=== PATIENT | male | born 1965 | race Caucasian/White ===

== ENCOUNTER 2018-10-11 00:39 | Emergency (ER) | payer BC ==
--- NOTE | 2018-10-11 01:01 | ED ---
Syncope/Near Syncope - HPI Summary HPI Summary: The patient is a 52 year old male presenting to [facility] with a chief complaint of syncope. The patient lost consciousness for approximately one minute. The patient's heard him fall and found him on the floor unconscious after urinating. He took 100mg of Benadryl within 2 hours and took NyQuil as well. The patient states he had difficulty urinating prior to his syncope. The patient does not remember if he hit his head and he denies any headache. - History Of Current Complaint Chief Complaint: EDSyncope Time Seen by Provider: 10/11/18 00:51 Hx Obtained From: Patient Onset/Duration: Sudden Onset Timing: Constant Context: Witnessed, Loss Of Consciousness Activity At Onset: Other - Urinating Alleviating Factor(s): Spontaneous Resolution Associated Signs And Symptoms: Other - Dysuria - Risk Factors Cardiac Risk Factors: Negative Dysrhythmia Risk Factors: Negative Risk Factor(s): Negative - Allergies/Home Medications Allergies/Adverse Reactions: Allergies Allergy/AdvReac Type Severity Reaction Status Date / Time BARLEY Allergy NASAL Uncoded 01/05/18 15:27 CONGESTION Dust Mites Allergy Congestion Uncoded 01/05/18 15:27 Seasonal Allergies Allergy Congestion Uncoded 01/05/18 15:27 PMH/Surg Hx/FS Hx/Imm Hx Endocrine/Hematology History: Denies: Hx Diabetes, Hx Sickle Cell Disease, Hx Thyroid Disease Cardiovascular History: Denies: Hx Hypertension, Other Cardiovascular Problems/Disorders Respiratory History: Reports: Hx Asthma - ROUTINE AND PRN MEDICATION FOR Denies: Hx Chronic Obstructive Pulmonary Disease (COPD) GI History: Denies: Hx Ulcer, Other GI Disorders History: Denies: Other Problems/Disorders Musculoskeletal History: Reports: Hx Tendonitis - RIGHT ROTATOR CUFF- CURRENTLY DOING PHYSICAL THERAPY Denies: Other Musculoskeletal History Sensory History: Reports: Hx Cataracts, Hx Contacts or Glasses - READING GLASSES Denies: Hx Hearing Aid Opthamlomology History: Reports: Hx Cataracts, Hx Contacts or Glasses - READING GLASSES Neurological History: Reports: Other Neuro Impairments/Disorders - ADD- ON MEDICATION FOR Psychiatric History: Reports: Hx Anxiety - PRN BUSPAR, Hx Depression - MILD DYSTHYMIA - Surgical History Surgery Procedure, Year, and Place: Cataract surgery(bilateral). TONSILLECTOMY - [facility] Hx Anesthesia Reactions: No Infectious Disease History: No Infectious Disease History: Denies: Hx Hepatitis, Hx Human Immunodeficiency Virus (HIV), History Other Infectious Disease, Traveled Outside the [place] in Last 30 Days - Family History Known Family History: Negative: Cardiac Disease, Hypertension - Social History Alcohol Use: Weekly Alcohol Amount: 3-4 PER WEEK Substance Use Type: Reports: None Smoking Status (MU): Never Smoked Tobacco Review of Systems Negative: Fever Positive: dysuria Positive: Syncope All Other Systems Reviewed And Are Negative: Yes Physical Exam - Summary Physical Exam Summary: VITAL SIGNS: Reviewed. GENERAL: Patient is a well-developed and nourished MALE who is lying comfortable in the stretcher. Patient is not in any acute respiratory distress. HEAD AND FACE: No signs of trauma. No ecchymosis, hematomas or skull depressions. No sinus tenderness. EYES: PERRLA, EOMI x 2, No injected conjunctiva, no nystagmus. EARS: Hearing grossly intact. Ear canals and tympanic membranes are within normal limits. MOUTH: Oropharynx within normal limits. NECK: Supple, trachea is midline, no adenopathy, no JVD, no carotid bruit, no c- spine tenderness, neck with full ROM. CHEST: Symmetric, no tenderness at palpation LUNGS: Clear to auscultation bilaterally. No wheezing or crackles. CVS: Regular rate and rhythm, S1 and S2 present, no murmurs or gallops appreciated. ABDOMEN: Soft, non-tender. No signs of distention. No rebound no guarding, and no masses palpated. Bowel sounds are normal. EXTREMITIES: FROM in all major joints, no edema, no cyanosis or clubbing. NEURO: Alert and oriented x 3. No acute neurological deficits. Speech is normal and follows commands. SKIN: Dry and warm Triage Information Reviewed: Yes Vital Signs On Initial Exam: Initial Vitals Temp Pulse Resp BP Pulse Ox 98.8 F 98 16 127/82 97 10/11/18 00:42 10/11/18 00:42 10/11/18 00:42 10/11/18 00:42 10/11/18 00:42 Vital Signs Reviewed: Yes Diagnostics - Vital Signs Vital Signs Temp Pulse Resp BP Pulse Ox 10/11/18 00:42 98.8 F 98 16 127/82 97 - Laboratory Result Diagrams: 10/11/18 01:13 10/11/18 01:13 Lab Statement: Any lab studies that have been ordered have been reviewed, and results considered in the medical decision making process. - EKG 0105 EKG Rhythm: Sinus Rhythm - [address] Segment: Normal Summary of EKG Findings: Normal axis. Normal interval. No ischemic changes. Re-Evaluation - Re-Evaluation First Eval Re-Evaluation Time: 01:45 Comment: Discussing lab results and plan for treatment and discharge with patient. Course/Dx Course Of Treatment: The patient is a 52 year old male presenting to [facility] with a chief complaint of syncope. Labs were unremarkable. Patient likely had vasovagal syncope after trying to urinate after taking 100 mg of benadryl. He will be instructed to follow up with his PCP in 1-2 days. The patient is agreeable with this plan. - Diagnoses Provider Diagnoses: Vasovagal syncope Discharge - Sign-Out/Discharge Documenting (check all that apply): Patient Departure - Discharge - Discharge Plan Condition: Stable Disposition: HOME Patient Education Materials: Syncope (ED) Referrals: Be Owen MD [Primary Care Provider] - Additional Instructions: Return to ED with any new or worsening symptoms. Follow up with primary care provider in 1-2 days. - Attestation Statements Document Initiated by Scribe: Yes Documenting Scribe: Jc Morris Provider For Whom Falguniibe is Documenting (Include Credential): Danita Schroeder MD Scribe Attestation: Jc Rosario scribed for Danita Schroeder MD on 10/11/18 at 0152. Status of Scribe Document: Ready
[2018-10-11 01:22] LABS: ABS Basophils 0 10^3/ul (0-0.2); ABS Eosinophils 0.2 10^3/ul (0-0.6); ABS Lymphocytes 0.5 10^3/ul (1.0-4.8); ABS Neutrophils 6.6 10^3/ul (1.5-7.7); ABS Nucleated RBC 0 10^3/ul; Eosinophil % 2.1 %; Hematocrit 45 % (42-52); Hemoglobin 15.5 g/dl (14.0-18.0); Lymphocyte % 5.7 %; Mean Corpuscular HGB Conc 35 g/dl (31-36); Mean Corpuscular Hemoglobin 32 pg (27-31); Mean Corpuscular Volume 93 fL (80-94); Mean Platelet Volume 7.5 fL (7.4-10.4); Nucleated Red Blood Cells % 0; Platelet Count 191 10^3/ul (150-450); Red Cell Distribution Width 13 % (10.5-15); White Blood Count 8.3 10^3/ul (3.5-10.8)
[2018-10-11 01:30] LABS: Activated Partial Thrombo Time 28.1 seconds (26.0-36.3); INR 1.03 (0.77-1.02)
[2018-10-11 01:40] LABS: Albumin 4.1 g/dL (3.2-5.2); Albumin/Globulin Ratio 1.5 (1-3); BUN/Creatinine Ratio 12.7 (8-20); Calcium 9.3 mg/dL (8.6-10.3); Globulin 2.8 g/dL (2-4); Magnesium 1.8 mg/dL (1.9-2.7); Potassium 3.5 mmol/L (3.5-5.0); Total Bilirubin 0.8 mg/dL (0.2-1.0); Total Protein 6.9 g/dL (6.4-8.9)
[2018-10-11 01:54] VITALS: BP 114/74
== END 2018-10-11 01:54 | disposition home or self-care (01) ==
LOC: ED 00:39
DX: R55 Syncope and collapse (principal); J45.909 Unspecified asthma, uncomplicated; F98.8 Other specified behavioral and emotional disorders with onset usually occurring in childhood and adolescence
CPT/HCPCS: 36415; 80053; 83735; 84484; 85025; 85610; 85730; 93005; 99282

== ENCOUNTER → 2019-02-14 10:31 | Day surgery (SDC) | payer BC ==
[~2019-02-14 10:31] MED LIST: Acetaminophen TAB* 325 MG ONE; Acetaminophen TAB* 325 MG PO ONE; Acetaminophen TAB* 325 MG PO PRN; Buffered Lidocaine 1% SYRIN* 1 ML/SYRINGE INTRADERM ONE; Dexamethasone IV* 4 MG/ML 1 ML (4 MG) ONE; DiMENhydriNATE IV* 50 MG/ML VIAL IV PUSH PRN; Famotidine IV* 10 MG/ML 2 ML (20 mg) ONE; Gabapentin CAP(*) 300 MG ONE; Gabapentin CAP(*) 300 MG PO ONE; Gelfoam 12-7 ADSORBABL SPONGE* 1 EA SPONGE ONE; HYDROcodone/ACETAMIN 5-325 MG* 1 TAB PO PRN; Lactated Ringers 1000 ML Bag* 1,000 ML IV SCH; Lidocaine 2% EPI 1:200000 MPF*10-20 ML VIAL ONE; Lidocaine 2% PF * 5 ML VIAL ONE; Midazolam* 1 MG/ML 2 ML VIAL (2 MG) ONE; Naloxone* 0.4 MG/ML 1 ML VIAL IV PRN; Ondansetron INJ* 2 MG/ML VIAL IV PRN; Ondansetron INJ* 2 MG/ML VIAL ONE; Oxymetazoline 0.05% NASAL SPR* 15 ML BTL ONE; PROCHLORPERAZINE INJ 5 MG/ML 2 ML VIAL IV PRN; Propofol* 10 MG/ML 20 ML BTL ONE; Triamcinolone Acetonide* 40 MG/ML 1 ML VIAL ONE; fentaNYL* 50 MCG/ML 2 ML VIAL (100 MCG VIAL) IV PRN; fentaNYL* 50 MCG/ML 2 ML VIAL (100 MCG VIAL) ONE
[2019-02-14 15:54] VITALS: BP 140/89
--- NOTE | 2019-02-14 22:45 | OP ---
DATE OF OPERATION: 02/14/19 - [facility] DATE OF : 65 SURGEON: Rocael Rubio MD. PRE-OP DIAGNOSES: 1. Chronic sinusitis. 2. Chronic nasal dyspnea. POST-OP DIAGNOSES: 1. Chronic sinusitis. 2. Chronic nasal dyspnea. OPERATIVE PROCEDURES: Bilateral videoendoscopic maxillary antrostomy, anterior - posterior ethmoidectomy, and submucosal resection of inferior turbinates. INDICATION: This is a 53-year-old gentleman with longstanding history of nasal dyspnea, chronic recurring sinusitis, frequent facial pressure pain, congestion , topical nasal steroids had been unsuccessful, frequent use of oral antibiotics. DESCRIPTION OF PROCEDURE: The patient was taken to the operating room, general anesthetic was given, the patient intubated with an LMA. Nose was decongested with Afrin placed pledgets. Subsequently, 2% lidocaine with epinephrine was infiltrated in the mucosa of the uncinate region on both sides and middle turbinate and the inferior turbinate. We initially turned our attention to the left side. The uncinate process was peeled out anteriorly. Microshaver was used to remove the uncinate residual. Antrostomy was then enlarged. Then, we returned our attention to the right side. Here too again the uncinate process was removed by peeling it forward and then microshaving it away. Antrostomy was enlarged sacrificing some of the wall posteriorly. Then we turned our attention to the ethmoidal bulla, resecting the bulla with microshaver, coursing superiorly into the nasal frontal duct area and laterally towards the lamina papyracea, posteriorly towards the ground lamella. This was done on both sides roughly symmetrically. Once adequate resection was carried out, the area was packed with Gelfoam and nasal foam. This was used as a spacer between the middle turbinate and lateral nasal wall. Then we turned our attention to the inferior turbinates. Submucosal resection was carried out after outfracture, carefully cauterizing the submucosal plane so as to reduce some of the submucosal bone and soft tissue. Once adequate resection was carried out, the patient was awakened and sent to the recovery room in stable condition. Instrument and sponge counts were correct. Blood loss minimal. [id number]/[facility] #: [id number] [facility]
== END | disposition home or self-care (01) ==
LOC: OR 10:31
PROVIDERS: ATTEND Otolaryngology
DX: J32.9 Chronic sinusitis, unspecified (principal); J31.0 Chronic rhinitis; J34.3 Hypertrophy of nasal turbinates; J34.2 Deviated nasal septum; R06.09 Other forms of dyspnea
CPT/HCPCS: A9270-GY; J1100; J2250; J2405; J2704; J3010; J3301

== ENCOUNTER 2019-05-13 07:21 | Emergency (ER) | payer BC ==
[2019-05-13 07:37] VITALS: BP 132/96
--- NOTE | 2019-05-13 08:32 | UC ---
Lower Extremity/Ankle HPI - HPI Summary HPI Summary: pt has had previous attacks of gout. usually resolves with colchicine and indocin, and pereira extract. started allopurinol yesterday as preventative and then got a gout attack L great toe that has not responded to indocin. today very painful, cannot wear shoe. feels this is the worst attack he has had Denies trauma to L foot - History of Current Complaint Chief Complaint: UCLowerExtremity Stated Complaint: FOOT PAIN Time Seen by Provider: 05/13/19 08:06 Hx Obtained From: Patient, Family/Extrusion Technician Onset/Duration: Sudden Onset Severity Initially: Severe Severity Currently: Severe Pain Intensity: 8 Aggravating Factor(s): Standing, Ambulation Alleviating Factor(s): Rest, Elevation Able to Bear Weight: Yes - Allergies/Home Medications Allergies/Adverse Reactions: Allergies Allergy/AdvReac Type Severity Reaction Status Date / Time BARLEY Allergy NASAL Uncoded 05/13/19 07:24 CONGESTION Dust Mites Allergy Congestion Uncoded 05/13/19 07:24 Seasonal Allergies Allergy Congestion Uncoded 05/13/19 07:24 Home Medications: Home Medications ALPRAZolam TAB* [Xanax TAB*] 0.25 mg PO BEDTIME PRN 05/13/19 [History Confirmed 05/13/19] Indomethacin CAP* [Indocin CAP*] 25 mg PO TID PRN 05/13/19 [History Confirmed ] Propranolol TAB* [Inderal TAB*] 20 mg PO DAILY PRN 05/13/19 [History Confirmed 05/13/19] buPROPion SR TAB* [Wellbutrin SR TAB*] 150 mg PO BID 05/13/19 [History Confirmed 05/13/19] PMH/Surg Hx/FS Hx/Imm Hx Previously Healthy: Yes Respiratory History: Other - environmental allergies Psychological History: Anxiety - Surgical History Surgical History: Yes Surgery Procedure, Year, and Place: Cataract surgery (Bilateral)[facility] [place]. TONSILLECTOMY - 1971 [facility]. Umbilical Hernia Repair 2013 [facility] [place]. sinus surgery 2019 - Family History Known Family History: Negative: Cardiac Disease, Hypertension - Social History Occupation: Employed Full-time Lives: With Family Alcohol Use: Weekly Alcohol Amount: 1 beer every other day. Substance Use Type: None Smoking Status (MU): Never Smoked Tobacco Review of Systems All Other Systems Reviewed And Are Negative: Yes Constitutional: Positive: Negative Skin: Positive: Other - redness L great toe Respiratory: Positive: Negative Cardiovascular: Positive: Negative Musculoskeletal: Positive: Other: - pain L great toe Neurological: Positive: Negative Psychological: Positive: Anxious Is Patient Immunocompromised?: No Physical Exam Triage Information Reviewed: Yes Appearance: Well-Appearing, Well-Nourished, Other: - pain when removing slipper Vital Signs: Initial Vital Signs Temp 98.2 F 05/13/19 07:29 Pulse 64 05/13/19 07:29 Resp 16 05/13/19 07:29 BP 132/96 05/13/19 07:29 Pulse Ox 98 05/13/19 07:29 Vital Signs Reviewed: Yes Respiratory Exam: Normal Cardiovascular Exam: Normal Musculoskeletal: Positive: Other: - erythema and swelling L great MTP, pain with palpation Neurological Exam: Normal Psychological: Positive: Other: - appears anxious about pain and treatment Lower Extremity Course/Dx - Differential Dx/Diagnosis Differential Diagnosis/HQI/PQRI: Gout, Infection Provider Diagnosis: Gout attack Discharge - Sign-Out/Discharge Documenting (check all that apply): Patient Departure All imaging exams completed and their final reports reviewed: No Studies - Discharge Plan Condition: Stable Disposition: HOME Prescriptions: Hydrocodone/Acetaminophen [[place] 5-325 Tablet] 1 each PO Q4HR #12 tablet MDD 6 Patient Education Materials: Gout (ED) Referrals: Be Owen MD [Primary Care Provider] - 2 Days (recheck blood pressure and gout) Additional Instructions: ice and elevate foot STOP allopurinol until you see your family medicine provider TAKE: indocin 50mg three times a day (take with food) for next 2-3 days colchicine 1.2mg for one dose and then 0.6mg 1 hour later today (then no more colchicine for 3 days) hydrocodone pain pill: 1-2 tablets every 4-6hours as needed for pain ( up to 6 pills a day) - Billing Disposition and Condition Condition: STABLE Disposition: Home
== END 2019-05-13 08:52 | disposition home or self-care (01) ==
LOC: UCEAST 07:21
DX: M10.9 Gout, unspecified (principal); F41.9 Anxiety disorder, unspecified
CPT/HCPCS: 99212; G0463